=== PATIENT | male | born 1960 | race Two or more races ===

== ENCOUNTER 2023-05-06 00:07 | Emergency (ER) | payer OTHER ==
[~2023-05-06] VITALS: Ht 170.2 cm; Wt 88.1 kg
[2023-05-06 00:36] VITALS: TEMP 99.1
[2023-05-06 01:45] VITALS: BP 134/88; PULSE 69; RESP 17
[2023-05-06] MEDS ORDERED: HYDROCODONE/ACETAMINOPHEN 5-325 MG TABLET PO ONE (02:45)
[2023-05-06] MEDS ORDERED: TRAM-559 PO (05:04)
== END 2023-05-06 05:33 | disposition home or self-care (01) ==
LOC: WELLNESS 00:07
DX: M25.511 Pain in right shoulder (principal)
CPT/HCPCS: 93005; 99283